=== PATIENT | male | born 1935 | race Caucasian/White ===

== ENCOUNTER 2022-12-27 12:20 | Outpatient (CLI) | payer OTHER, SELFPAY ==
[2022-12-27 17:38] LABS: Chloride* 106 mmol/L (96-114)
[2022-12-27 17:39] LABS: Potassium* 5.3 mmol/L (3.6-5.1); Sodium* 140 mmol/L (135-149)
[2022-12-27 17:41] LABS: Creatinine* 0.9 mg/dL (0.5-1.5); Estimated Glomerular Filt Rate 84 ml/min
[2022-12-27 17:42] LABS: Blood Urea Nitrogen* 23 mg/dL (7-30); Carbon Dioxide* 30 mmol/L (20-32); Glucose* 92 mg/dL (60-115)
[2022-12-27 21:16] LABS: Free T4 Free Thyroxine* 0.88 ng/dL (0.70-1.85)
== END 2022-12-27 12:21 | disposition home or self-care (01) ==
PROVIDERS: PCP Family Medicine; Visit Provider Family Medicine
DX: C61 Malignant neoplasm of prostate (principal); E78.5 Hyperlipidemia, unspecified; Z13.29 Encounter for screening for other suspected endocrine disorder; Z13.1 Encounter for screening for diabetes mellitus
CPT/HCPCS: 80048; 84153; 84439; 84443

== ENCOUNTER 2023-01-10 08:09 | Outpatient (CLI) | payer OTHER, SELFPAY ==
--- NOTE | 2023-01-10 08:15 | CRLHL7_ITS ---
For Patients: As a result of the 21st Century Cures Act, medical imaging exams and procedure reports are released immediately into your electronic medical record. You may view this report before your referring provider. If you have questions, please contact your health care provider. Indication: Right leg weakness Technique: Noncontrast sagittal and axial T1, T2, and sagittal STIR sequences are provided. Comparison: XR 12/27/2022 Findings: Dextroscoliosis apex at L2. Vertebral body heights are maintained. No acute fracture. Chronic T12 superior endplate compression fracture and Schmorl`s node. No aggressive osseous lesions. No prevertebral or paraspinal edema. Retrolisthesis at L2-3 and L3-4. The conus medullaris is normal in signal and location. Anterior osteophytes are most prominent at L1-2 and L2-3. Left renal cyst. T12-L1: No significant spinal canal stenosis or neural foramen narrowing. L1-2: Mild disc bulge. No significant spinal canal stenosis or neural foramen narrowing. L2-3: Severe interspace narrowing, retrolisthesis, and disc bulge. Mild spinal canal narrowing. Moderate neural foramina narrowing bilaterally. L3-4: Mild interspace narrowing and retrolisthesis. Disc bulge, central disc extrusion with inferior migration and moderate facet arthrosis. Severe spinal canal stenosis. Moderate neural foramen narrowing bilaterally. L4-5: Circumferential disc bulge. Advanced facet arthrosis. Mild to moderate spinal canal stenosis. Severe right neural foramen narrowing with impingement of the right L4 nerve. No left neural foramina narrowing L5-S1: Moderate disc space narrowing. Disc bulge and right paracentral disc extrusion. Moderate facet arthrosis. Mild right subarticular recess narrowing. Severe neural foramina narrowing with impingement of the bilateral L5 nerve roots. Diffuse atrophy of the paraspinal muscles. Sacroiliac joint degenerative changes. Impression: 1. No acute osseous abnormality. Chronic T12 superior endplate compression fracture and Schmorl`s node. Dextroscoliosis with apex at L2 on the supine nonweightbearing study. Degenerative retrolisthesis at L2-3 and L3-4. 2. Severe spinal canal stenosis at L3-4 and [id number] spinal canal stenosis at L4-5. Mild spinal canal narrowing at L2-3 and mild right subarticular recess narrowing at L5-S1. 3. Severe neural foramina narrowing at L5-S1 with impingement of the bilateral L5 nerve roots. Moderate bilateral neural foramen narrowing at L2-3 and L3-4. 4. Sacroiliac joint degenerative changes. Atrophy of paraspinal muscles. Dictated by Pablito Moreno MD @ 01/10/2023 9:19:49 AM (Electronically Signed)
== END 2023-01-10 08:10 | disposition home or self-care (01) ==
PROVIDERS: PCP Family Medicine; Visit Provider Family Medicine
DX: R29.898 Other symptoms and signs involving the musculoskeletal system (principal); M48.061 Spinal stenosis, lumbar region without neurogenic claudication; M51.27 Other intervertebral disc displacement, lumbosacral region
CPT/HCPCS: 72148

== ENCOUNTER 2024-07-16 12:05 | Outpatient (CLI) | payer OTHER, SELFPAY ==
--- OUTSIDE RECORDS SUMMARY | 2024-07-16 12:09 | XMS_ITS | Clinical Summary ---
Author Organization [place] Address [address] [place] [address]. [place] [address] Care Team Providers Care Space Engineer Name Role Phone Kyle King MD Primary Care Provider [phone] Allergies No known active allergies Medications Medication Sig Dispensed Refills Start Date End Date Status NO ACTIVE MEDICATIONS per pt 0 0 05/21/2003 Active Immunizations Name Administration Dates Next Due TDAP Vaccine (Adacel) 05/22/2020 Social History Tobacco Use Types Packs/Day Years Used Date Smoking Tobacco: Never Alcohol Use Standard Drinks/Week Comments Not Asked 0 (1 standard drink = 0.6 oz pur e alcohol) Adolescent Education Answer Date Record ed Getting School Help Needed Not on file 08/13 Sex and Gender Information Value Date Recorded Sex Assigned at Not on file Gender Identity Not on file Sexual Orientation Not on file Last Filed Vital Signs Vital Sign Reading Time Taken Comments Blood Pressure 124/79 05/22/2020 11:45 AM CDT Pulse 86 05/22/2020 11:45 AM CDT Temperature 36.9 ??C (98.5 ??F) 05/22/2020 10:33 AM C DT Respiratory Rate 18 05/22/2020 10:33 AM CDT Oxygen Saturation 94% 05/22/2020 11:45 AM CDT Inhaled Oxygen Concentration - - Weight - - Height - - Body Mass Index - - Plan of Treatment Not on file Care Teams Space Engineer Relationship Specialty Start Date End Date Kyle King MD PCP - General Family Practice 05/22/20
--- OUTSIDE RECORDS SUMMARY | 2024-07-16 12:09 | XMS_ITS | Clinical Summary ---
Author Organization [facility] Address [place], [place] [address] Care Team Providers Care Front Counter Clerk Name Role Phone Boo King MD Primary Care Provider [phone] Allergies Active Allergy Reactions Criticality Noted Date Comments Unlisted Allergen (Include Detail In Comments) *Unknown 10/06/2011 Juniper/cedar tress Medications Medication Sig Dispensed Refills Start Date End Date Status cholecalciferol (VITAMIN D) 2,000 unit capsule Take 1 capsule by mouth once daily. Active ascorbic acid (VITAMIN C) 250 mg tablet Take 250 mg by mouth once daily. Active multivitamin capsule Take 1 capsule by mouth once daily. Active Garlic Cap Take by mouth. Active selenium 200 mcg Cap Take by mouth once daily. Active tadalafil (CIALIS) 5 mg tablet Take 5 mg by mouth once daily if needed. Take 30 minutes before sexual activity. Active zinc 15 mg tablet Take 15 mg by mouth once daily. Active HYDROcodone-acetam inophen, 5-325 mg, (NORCO 5-325) per tablet Take 1-2 tablets by mouth every 4 hours if needed for Pain. Max acetaminophen dose: 4000mg in 24 hrs. 40 tablet 0 10/07/2011 Active Social History Tobacco Use Types Packs/Day Years Used Date Smoking Tobacco: Never Assessed Sex and Gender Information Value Date Recorded Sex Assigned at Not on file Gender Identity Not on file Sexual Orientation Not on file Obstetrics History Last Filed Vital Signs Vital Sign Reading Time Taken Comments Blood Pressure 108/57 10/07/2011 2:20 PM VOCATIONAL NURSE LVN Pulse 91 10/07/2011 2:20 PM VOCATIONAL NURSE LVN Temperature 36.2 ??C (97.2 ??F) 10/07/2011 1:15 PM CS T Respiratory Rate 16 10/07/2011 2:20 PM VOCATIONAL NURSE LVN Oxygen Saturation 96% 10/07/2011 2:20 PM VOCATIONAL NURSE LVN Inhaled Oxygen Concentration - - Weight 92.2 kg (203 lb 4.2 oz) 10/07/2011 8:00 A M VOCATIONAL NURSE LVN Height 177.8 cm (5' 10) 10/06/2011 11:00 AM VOCATIONAL NURSE LVN Body Mass Index 29.17 10/06/2011 11:00 AM VOCATIONAL NURSE LVN Plan of Treatment Not on file Advance Directives Documents on File Type Date Recorded Patient First Aid Teacher Expl anation Healthcare Directive 10/07/2011 Care Teams Front Counter Clerk Relationship Specialty Start Date End Date Boo King MD PCP - General Family Practice 10/04/11
--- OUTSIDE RECORDS SUMMARY | 2024-07-16 12:09 | XMS_ITS | Referral Summary ---
Author Organization [facility] Address [address] [place] [address]. [place] [address] Care Team Providers Care Photographic Equipment Assembler Name Role Phone Kyle King MD Primary Care Provider [phone] Allergies No known active allergies Medications Medication [...] of Treatment Not on file Care Teams Photographic Equipment Assembler Relationship Specialty Start Date End Date Kyle King MD PCP - General Family Practice 05/22/20
== END 2024-07-16 12:06 | disposition home or self-care (01) ==
PROVIDERS: PCP Family Medicine; Visit Provider Family Medicine
DX: R79.89 Other specified abnormal findings of blood chemistry (principal); C61 Malignant neoplasm of prostate; R60.0 Localized edema
CPT/HCPCS: 80048; 84153; 84439; 84443

== ENCOUNTER 2025-02-08 09:01 | Outpatient (CLI) | payer MEDICARE, SELFPAY | END 2025-02-08 09:02 | disposition home or self-care (01) | PROVIDERS: PCP Family Medicine; Visit Provider Family Medicine | DX: R94.6 Abnormal results of thyroid function studies (principal) | CPT/HCPCS: 84439; 84443 ==